=== PATIENT | female | born 1950 | race Hispanic/Latino ===

== ENCOUNTER → 2019-10-30 | Day surgery (SDC) | payer MEDICARE, OTHER ==
[2019-10-25 13:46] LABS: BASOPHILS % 0.5 % (0.0-1.0); EOSINOPHILS # (AUTO) 0.2 (0.0-0.4); EOSINOPHILS % 2.3 % (0.0-6.0); HEMATOCRIT 36.4 % (34.2-44.1); HEMOGLOBIN 11.7 g/dL (12.0-16.0); LYMPHOCYTES # (AUTO) 2.5 (1.0-3.2); LYMPHOCYTES % 34.2 % (18.0-39.1); MEAN CORPUSCULAR HEMOGLOBIN 27.9 pg (28-32); MEAN CORPUSCULAR HGB CONC 32.1 g/dL (31-35); MEAN CORPUSCULAR VOLUME 86.9 fL (81-99); MONOCYTES # (AUTO) 0.4 (0.2-0.8); MONOCYTES % 5.7 % (4.4-11.3); NEUTROPHILS # (AUTO) 4.2 (2.1-6.9); NEUTROPHILS % 56.8 % (38.7-80.0); PLATELET COUNT 229 x10e3/uL (140-360); RED BLOOD COUNT 4.19 x10e6/uL (3.6-5.1); RED CELL DISTRIBUTION WIDTH 13.3 % (11.7-14.4)
[2019-10-25 14:03] LABS: ANION GAP 13.3 mmol/L (8-16); BLOOD UREA NITROGEN 11 mg/dL (7-26); BUN/CREATININE RATIO 14 (6-25); CALCIUM 9.4 mg/dL (8.4-10.2); CARBON DIOXIDE 26 mmol/L (22-29); CHLORIDE 108 mmol/L (98-107); EST GLOMERULAR FILTRATION RATE > 60 ML/MIN (60-); GLUCOSE 82 mg/dL (74-118); POTASSIUM 4.3 mmol/L (3.5-5.1); SODIUM 143 mmol/L (136-145)
--- NOTE | 2019-10-25 14:39 | Diagnostic Imaging Report ---
EXAM: CHEST 2 VIEWS DATE: 10/25/2019 2:15 PM INDICATION: Preoperative evaluation COMPARISON: None FINDINGS: The trachea is midline. The lungs are symmetrically expanded without evidence for large focal consolidation, pneumothorax, or significant pleural effusion. The cardiomediastinal silhouette and pulmonary vasculature are within normal limits. No acute osseous abnormality is identified. The surrounding soft tissues are unremarkable. IMPRESSION: No acute cardiopulmonary process identified. Signed by: Dr. Jarrod Olivas MD on 10/25/2019 2:36 PM
[~2019-10-30] MED LIST: BUPIVACAINE HCL 0.5% INJ 30 ML VIAL INJ ONE; CEFAZOLIN SOD 1 GM/NS 50ML 100 ML IV ONE; DEXAMETHASONE SOD PHOS INJ 4 MG/ML VIAL ONE; EPHEDRINE SULFATE INJ 50 MG/ML VIAL ONE; FAMOTIDINE 20 MG/2 ML VIAL IV ONE; FENTANYL CITRATE/PF 100MCG/2 ML INJ ONE; GLUCOTROL XL5 MG PO; KETOROLAC TROMETHAMINE 30 MG/ML VIAL ONE; LIDOCAINE HCL 2% LOCAL INJ 5 ML SDV VIAL INJ ONE; LISINOPRIL-HCT1 EACH PO; METOCLOPRAMIDE HCL 10 MG/2ML VIAL ONE; METOPROLOL SUCC50 MG PO; MIDAZOLAM HCL 2 MG/2 ML VIAL ONE; ONDANSETRON HCL INJ 2MG/ML 2ML 2 MG/ML VIAL ONE; PROPOFOL IV EMULSION 10 MG/ML 20 ML VIAL ONE; ROCURONIUM BROMIDE 10 MG/ML 5ML VIAL IV ONE; SEVOFLURANE INHAL SOLN 250 ML PEN BTL ONE; SUCCINYLCHOLINE CHLORIDE 20 MG/ML 10ML VIAL ONE; SUCRALFATE1 GM PO; Z.0.PRINIVIL10 MG
[2019-10-30 09:30] VITALS: BP 174/69
--- NOTE | 2019-10-31 11:12 | Operative Report ---
DATE OF PROCEDURE: 10/30/2019 SURGEON: Eduardo Rojas MD PREOPERATIVE DIAGNOSIS: Left trigger thumb. POSTOPERATIVE DIAGNOSIS: Left trigger thumb. OPERATIONS/PROCEDURES PERFORMED: The patient underwent a left trigger thumb release. COOK BOAT: There was no assistant oceanographer. ANESTHESIA: General endotracheal intubation anesthesia. IV FLUIDS: Per anesthesia record. BRIEF DESCRIPTION OF THE PATIENT'S OPERATIVE PROCEDURE: Ms. Peraza was taken to the operating room and placed supine position on the operating table. Following induction of general anesthesia as well as endotracheal intubation, the patient's left upper extremity was examined under anesthesia, it was found that was held in a partially flexed position. With the patient asleep and relaxed, the thumb was able to be fully extended. She had active catching and locking with flexion of the IP joint and a palpable nodule at the level of the A1 mary ann. The patient's upper extremity was prepped and draped in standard surgical fashion. The case was begun by creating an incision through the skin only at the level of the A1 mary ann. Blunt dissection was used to deepen the incision and retractors were placed in the incision to protect the neurovascular structures. The A1 mary ann was identified and divided in its entirety. The thumb was placed through range of motion and there was no catching or locking noted during the exam. The tourniquet was deflated and hemostasis was obtained. The wound was copiously irrigated. The wound was then closed in a single layer fashion. Sterile dressings were applied. The patient was awakened and taken to postanesthesia care unit in stable condition. Eduardo Rojas MD EBR/MODL /[id number]
== END | disposition home or self-care (01) ==
LOC: OR 05:53
PROVIDERS: ATTEND Specialist
DX: M65.312 Trigger thumb, left thumb (principal); M19.042 Primary osteoarthritis, left hand; E11.9 Type 2 diabetes mellitus without complications; K21.9 Gastro-esophageal reflux disease without esophagitis; I10 Essential (primary) hypertension; I45.10 Unspecified right bundle-branch block; R00.2 Palpitations; Z88.1 Allergy status to other antibiotic agents; Z88.8 Allergy status to other drugs, medicaments and biological substances; Z01.810 Encounter for preprocedural cardiovascular examination; Z01.812 Encounter for preprocedural laboratory examination; Z01.818 Encounter for other preprocedural examination; Z11.59 Encounter for screening for other viral diseases; Z79.84 Long term (current) use of oral hypoglycemic drugs; Z68.33 Body mass index [BMI] 33.0-33.9, adult
CPT/HCPCS: 26055; 36415 ×2; 71046; 80048; 82948; 85025; 93005; J0330; J0690; J1100; J1885; J2001; J2250; J2405; J2704; J2765; J3010; U0002